=== PATIENT | female | born 1955 | race Caucasian/White ===

== ENCOUNTER 2021-01-26 11:40 | Emergency (ER) | payer OTHER ==
[2021-01-26 12:05] VITALS: BP 158/98; PULSE 78; TEMP 98.2; BMI 35.2
[2021-01-26] MEDS ORDERED: DIPHTH,PERTUSS(ACELL),TET 0.5 ML DISP.SYRIN IM ONE ×2 (12:12→12:50)
== END 2021-01-26 13:40 | disposition home or self-care (01) ==
LOC: FER 11:40
PROC: 3E0234Z Introduction of Serum, Toxoid and Vaccine into Muscle, Percutaneous Approach (ICD-10-PCS; principal; 2021-01-26)
DX: S61.452A Open bite of left hand, initial encounter (principal); W54.0XXA Bitten by dog, initial encounter
CPT/HCPCS: 73130-TC-LT-FY; 90471; 90715; 99284-25

== ENCOUNTER 2021-02-03 13:03 | Emergency (ER) | payer OTHER ==
[2021-02-03 13:29] VITALS: BP 150/87; PULSE 81; TEMP 98.1; BMI 34.3
== END 2021-02-03 13:51 | disposition home or self-care (01) ==
LOC: FER 13:03
DX: S61.412A Laceration without foreign body of left hand, initial encounter (principal); Z48.02 Encounter for removal of sutures
CPT/HCPCS: 99281-25